=== PATIENT | female | born 1990 | race American Indian/Alaskan Native ===

== ENCOUNTER 2021-12-02 13:25 | Emergency (ER) | payer OTHER ==
[2021-12-02] MEDS ORDERED: Famotidine 20 MG Tab PO ONE (14:08)
== END 2021-12-02 14:20 ==
LOC: JP.ED 13:25
DX: T18.9XXA Foreign body of alimentary tract, part unspecified, initial encounter (principal); Z72.0 Tobacco use
CPT/HCPCS: 70360; 74022; 99282; 99283; A9270